=== PATIENT | female | born 1990 | race Caucasian/White ===

== ENCOUNTER 2017-03-30 19:46 | Emergency (ER) | payer MEDICAID, OTHER ==
[~2017-03-30] VITALS: Ht 162.6 cm; Wt 62.0 kg
[~2017-03-30 19:46] MED LIST: PREN1TAB30 PO
[2017-03-30 19:48] VITALS: BP 129/77; PULSE 105; RESP 16; TEMP 98.4; O2SAT 98
--- NOTE | 2017-03-30 20:23 | PD ---
Physical Exam Date Seen by Provider: Mar 30, 2017 Time Seen by Provider: 20:21 Narrative 27 yo female here for evaluation of dizziness and feeling like her vision goes black. History of diabetes with low blood sugars per patient. Has had multiple episodes. No syncope. But pre syncope. No other symptoms. No pain. No symptoms today. Vitals are stable in triage. Awaiting Bed placement. Data Data Last Documented VS Vital Signs Date Time Temp Pulse Resp B/P Pulse Ox O2 Delivery O2 Flow Rate FiO2 03/30/17 19:48 98.4 105 16 129/77 98 Room Air [facility] Medical Record Reviewed: Yes Supervised Visit with DANA: No Yossi Bird Mar 30, 2017 20:23
[2017-03-30 21:52] VITALS: BP 110/56; PULSE 69; RESP 18
[2017-03-30 22:00] LABS: AUTOMATED NEUTROPHIL # 5.8 TH/MM3 (1.8-7.7); BASOPHIL % 0.4 % (0.0-2.0); EOSINOPHIL # 0.1 TH/MM3 (0-0.4); EOSINOPHIL % 0.8 % (0.0-4.0); HEMATOCRIT 38.6 % (35.0-46.0); HEMO FLAGS DIFF FINAL; LYMPH % 30.8 % (9.0-44.0); MEAN CELL VOLUME 87.9 FL (80.0-100.0); MEAN CORPUSCULAR HEMOGLOBIN 30.1 PG (27.0-34.0); MEAN CORPUSCULAR HGB CONC 34.2 % (32.0-36.0); MONO % 7.6 % (0.0-8.0); NEUT % 60.4 % (16.0-70.0); PLATELET COUNT 213 TH/MM3 (150-450); RED BLOOD COUNT 4.39 MIL/MM3 (4.00-5.30); WHITE BLOOD COUNT 9.6 TH/MM3 (4.0-11.0)
[2017-03-30 22:08] LABS: BLOOD, URINE NEG (NEG); COMMENT (UR) CULT NOT INDICATED; CULTURE IF INDICATED CULT NOT INDICATED; GLUCOSE,URINE NEG (NEG); KETONE, URINE NEG (NEG); NITRITE,URINE NEG (NEG); SQUAMOUS EPITHELIAL CELL URINE 2 /hpf (0-5); URINE COLOR YELLOW (YELLW/STRAW)
[2017-03-30 22:16] LABS: BICARBONATE 25.6 MEQ/L (21.0-32.0)
--- NOTE | 2017-03-30 22:26 | PD ---
HPI . Dizziness Chief Complaint: Dizziness Time Seen by Provider: 21:25 Travel History International Travel<30 days: No Contact w/Intl Traveler<30days: No Traveled to known affect area: No History of Present Illness HPI This patient presents with the chief complaint of dizziness for the last several days. She actually reports intermittent dizziness on for quite a while now. She states that sometimes it feels like her vision is going black. She states that she has been told that she looks very pale sometimes. She reports occasional nausea. She states that she wakes up in the morning with her hand shaking. She describes fatigue. She states that she has not had a primary care physician but does have an appointment a primary care provider one week from today. She reports no exacerbating or relieving factors. She is very concerned that she is diabetic. PFSH Past Medical History Bipolar Disorder: Yes Depression: Yes Diminished Hearing: No Reproductive: Yes (ENDOMETRIOSIS) Immunizations Current: Yes Tetanus Vaccination: < 5 Years ?: Not Menopausal: No : 2 Para: 0 Miscarriage: 1 Past Surgical History Surgical History: No Previous Surgery Social History Alcohol Use: No Tobacco Use: Yes (5-6 cigarettes per day) Substance Use: Yes (marijuana) Allergies-Medications (Allergen,Severity, Reaction): Coded Allergies: Benadryl (Verified Allergy, Severe, Itching, 03/30/17) Zofran (Unverified Allergy, Mild, Nausea/Vomiting, 05/31/15) Reported Meds & Prescriptions Reported Meds & Active Scripts Active Review of Systems Except as stated in HPI: all other systems reviewed are Neg General / Constitutional: Positive: Other (fatigue), No: Fever, Chills Eyes: Positive: Visual changes HENT: Positive: Lightheadedness, No: Headaches Gastrointestinal: Positive: Nausea, No: Vomiting Genitourinary: No: Urgency, Frequency, Dysuria Neurologic: Positive: Tremor, No: Syncope, Change in Mentation, Slurred Speech Physical Exam Narrative GENERAL: Awake and alert and fully oriented. SKIN: Warm and dry. HEAD: Atraumatic. Normocephalic. EYES: Pupils equal and round. Extraocular movements are intact. ENT: No nasal bleeding or discharge. Mucous membranes pink and moist. NECK: Trachea midline. Neck is supple. CARDIOVASCULAR: Regular rate and rhythm. Heart sounds are normal. RESPIRATORY: No accessory muscle use. Lungs are clear with full air movement throughout. GASTROINTESTINAL: Abdomen soft, non-tender, nondistended. MUSCULOSKELETAL: No obvious deformities. No edema. NEUROLOGICAL: Awake and alert. No obvious cranial nerve deficits. Motor grossly within normal limits. Normal speech. PSYCHIATRIC: Appropriate mood and affect; insight and judgment normal. Data Data Last Documented VS Vital Signs Date Time Temp Pulse Resp B/P Pulse Ox O2 Delivery O2 Flow Rate FiO2 03/30/17 21:52 69 18 110/56 Room Air 03/30/17 19:48 98.4 98 Orders Basic Metabolic Panel (Bmp) (03/30/17 21:33) Ed Urine Pregnancytest Poc (03/30/17 21:33) Complete Blood Count With Diff (03/30/17 21:33) Urinalysis - C+S If Indicated (03/30/17 21:33) Iv Access Insert/Monitor (03/30/17 21:33) Labs Laboratory Tests Test 03/30/17 21:40 White Blood Count 9.6 TH/MM3 Red Blood Count 4.39 MIL/MM3 Hemoglobin 13.2 GM/DL Hematocrit 38.6 % Mean Corpuscular Volume 87.9 FL Mean Corpuscular Hemoglobin 30.1 PG Mean Corpuscular Hemoglobin 34.2 % Concent Red Cell Distribution Width 12.0 % Platelet Count 213 TH/MM3 Mean Platelet Volume 10.1 FL Neutrophils (%) (Auto) 60.4 % Lymphocytes (%) (Auto) 30.8 % Monocytes (%) (Auto) 7.6 % Eosinophils (%) (Auto) 0.8 % Basophils (%) (Auto) 0.4 % Neutrophils # (Auto) 5.8 TH/MM3 Lymphocytes # (Auto) 3.0 TH/MM3 Monocytes # (Auto) 0.7 TH/MM3 Eosinophils # (Auto) 0.1 TH/MM3 Basophils # (Auto) 0.0 TH/MM3 CBC Comment DIFF FINAL Differential Comment Urine Color YELLOW Urine Turbidity CLOUDY Urine pH 8.0 Urine Specific [place] 1.022 Urine Protein TRACE mg/dL Urine Glucose (UA) NEG mg/dL Urine Ketones NEG mg/dL Urine Occult Blood NEG Urine Nitrite NEG Urine Bilirubin NEG Urine Urobilinogen LESS THAN 2.0 MG/DL Urine Leukocyte Esterase NEG Urine RBC 2 /hpf Urine WBC 3 /hpf Urine Squamous Epithelial 2 /hpf Cells Urine Amorphous Sediment RARE Microscopic Urinalysis Comment CULT NOT INDICATED Sodium Level 139 MEQ/L Potassium Level 4.0 MEQ/L Chloride Level 106 MEQ/L Carbon Dioxide Level 25.6 MEQ/L Anion Gap 7 MEQ/L Blood Urea Nitrogen 14 MG/DL Creatinine 0.79 MG/DL Estimat Glomerular Filtration 88 ML/MIN Rate Random Glucose 90 MG/DL Calcium Level 9.4 MG/DL MDM Medical Decision Making Medical Screen Exam Complete: Yes Emergency Medical Condition: Yes Differential Diagnosis Differential diagnosis of dizziness includes but is not limited to vertigo, dehydration, acute blood loss, sepsis, ACS Narrative Course Patient presents complaining with intermittent dizziness. Her physical exam is unremarkable. CBC & BMP Diagram 03/30/17 21:40 UA is negative. test is negative. Diagnosis Primary Impression: Dizziness Patient Instructions: Dizziness (ED), General Instructions Disposition: 01 DISCHARGE HOME Condition: Stable Graceila Aguilera MD Mar 30, 2017 22:26
== END 2017-03-30 22:53 | disposition home or self-care (01) ==
LOC: NEPD 19:46
DX: R42 Dizziness and giddiness (principal)
CPT/HCPCS: 80048; 81001; 84703; 85025; 99283

== ENCOUNTER 2017-10-20 12:48 | Emergency (ER) | payer MEDICAID ==
[~2017-10-20 12:48] MED LIST changes: +CYAN1TAB21 SL; +DICL50TA PO; +MIREIUD I-UTERINE; -PREN1TAB30 PO
[2017-10-20 12:50] VITALS: BP 129/66; PULSE 94; RESP 16; TEMP 98.7; O2SAT 99
[2017-10-20] MEDS ORDERED: ZOLO25TA PO (13:19)
[2017-10-20] MEDS ORDERED: LAMO25 PO (13:19)
[2017-10-20] MEDS ORDERED: HYDR-4107 PO (13:19)
[2017-10-20] MEDS ORDERED: BACT800T5 PO (14:00)
--- NOTE | 2017-10-20 14:01 | PD ---
HPI Chief Complaint: Wound/Suture/Staple Re-Check Time Seen by Provider: 13:15 Travel History International Travel<30 days: No Contact w/Intl Traveler<30days: No Traveled to known affect area: No History of Present Illness HPI This is a 27-year-old female here for suture removal to her left foot. Patient sustained a laceration approximately 7 days ago. She reports some mild erythema and increased tenderness at the site of the laceration. No fever or chills. Symptom severity is mild. No aggravating or alleviating factors. PFSH Past Medical History Bipolar Disorder: Yes Depression: Yes Diminished Hearing: No Reproductive: Yes (ENDOMETRIOSIS) Immunizations Current: Yes Menopausal: No : 2 Para: 0 Miscarriage: 1 Social History Alcohol Use: No Tobacco Use: Yes (5-6 cigarettes per day) Substance Use: Yes (marijuana) Allergies-Medications (Allergen,Severity, Reaction): Coded Allergies: diphenhydramine (Verified Allergy, Severe, Itching, 10/20/17) ondansetron (Verified Allergy, Mild, Nausea/Vomiting, 10/20/17) Reported Meds & Prescriptions Reported Meds & Active Scripts Active Reported Hydrocodone-Acetaminophen 5-300 Mg Tab 1 Tab PO Q6H PRN Lamictal (Lamotrigine) 25 Mg Tab 25 Mg PO BID Zoloft (Sertraline HCl) 25 Mg Tab 25 Mg PO DAILY Review of Systems Except as stated in HPI: all other systems reviewed are Neg General / Constitutional: No: Fever Physical Exam Narrative GENERAL: Alert and well-appearing 27-year-old female SKIN: Warm and dry. 2-3 cm laceration to the left foot with mild erythema and tenderness. No surrounding cellulitis HEAD: Normocephalic. EYES: No injection or drainage. NECK: Supple, trachea midline. MUSCULOSKELETAL: No cyanosis, or edema. Left lower extremity: The skin noted above. No swelling of the foot. 2+ dorsal pedis pulses. Brisk cap refill. Data Data Last Documented VS Vital Signs Date Time Temp Pulse Resp B/P (MAP) Pulse Ox O2 Delivery O2 Flow Rate FiO2 10/20/17 12:50 98.7 94 16 129/66 (87) 99 MDM Medical Decision Making Medical Screen Exam Complete: Yes Emergency Medical Condition: Yes Differential Diagnosis Encounter for suture removal, mild wound infection, abscess Narrative Course 27-year-old female here for suture removal. She reports some mild erythema and increased tenderness over last several days. On exam she does have mild tenderness and erythema of the wound. She will be prescribed Bactrim. Procedures Procedure Narrative Suture removal: Sutures removed from left foot. Patient tolerated procedure well. Wound edges well approximate. 2 Steri-Strips placed to reinforce Diagnosis Primary Impression: Wound infection Referrals: [facility] Additional Instructions: Antibiotics as prescribed. Return if he developed new or worsening symptoms. Scripts Sulfamethoxazole-Trimethoprim (Bactrim DS) 800-160 Mg Tab 1 TAB PO BID for Infection, #14 TAB 0 Refills Prov: Fadumo Crews 10/20/17 Disposition: 01 DISCHARGE HOME Condition: Stable Fadumo Crews Oct 20, 2017 14:01
== END 2017-10-20 14:23 | disposition home or self-care (01) ==
LOC: NEPK 12:48
DX: L08.9 Local infection of the skin and subcutaneous tissue, unspecified (principal); S91.312D Laceration without foreign body, left foot, subsequent encounter; X58.XXXD Exposure to other specified factors, subsequent encounter; Z48.02 Encounter for removal of sutures
CPT/HCPCS: 99283